=== PATIENT | female | born 1985 | race Caucasian/White ===

== ENCOUNTER 2017-08-06 18:39 | Emergency (ER) | payer OTHER ==
[~2017-08-06] VITALS: Ht 165.1 cm; Wt 72.6 kg
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
[2017-08-06] MEDS ORDERED: VITANATAL OB +1 EACH PO (19:18)
== END 2017-08-06 22:34 | disposition home or self-care (01) ==
LOC: SED 18:39
DX: S10.93XA Contusion of unspecified part of neck, initial encounter (principal); S30.0XXA Contusion of lower back and pelvis, initial encounter; Y92.410 Unspecified street and highway as the place of occurrence of the external cause; Z88.5 Allergy status to narcotic agent; Z88.1 Allergy status to other antibiotic agents; Z79.899 Other long term (current) drug therapy; V47.5XXA Car driver injured in collision with fixed or stationary object in traffic accident, initial encounter; Y93.89 Activity, other specified
CPT/HCPCS: 71020; 72040; 72100; 99284